=== PATIENT | female | born 1960 | race Caucasian/White ===

== ENCOUNTER 2022-09-15 20:24 | Emergency (ER) | payer OTHER ==
[2022-09-15 21:51] VITALS: BP 187/98; PULSE 89; TEMP 97.4
[2022-09-15] MEDS ORDERED: ONDANSETRON 4 MG/2 ML VIAL IM STA (22:03)
--- NOTE | 2022-09-15 22:03 | ED ---
General Adult HPI - General Chief complaint: Chest Pain Stated complaint: left side injury/pain vomiting blood Time Seen by Provider: 09/15/22 21:55 Source: patient, RN notes reviewed Mode of arrival: ambulatory Limitations: no limitations - History of Present Illness Initial comments: Patient is a 62-year-old female presenting to the emergency room with complaints of chest wall pain/rib pain/left breast pain which began after a shelf from a shelving unit fell on her 2 days ago. She is intolerant to analgesics and has only been taking approximately half Tylenol for pain and declines the need for analgesic therapy at this time however she is concerned that something is wrong with her chest as the pain has persisted. The pain is reproducible and her chest wall is tender. She has some nausea at times without any vomiting as well. She denies any typical chest pain, shortness of breath not directly related to pain, abdominal pain, diarrhea, fevers or chills. She denies any significant past medical history and does not take any medications on a regular basis. - Related Data Allergies Allergy/AdvReac Type Severity Reaction Status Date / Time No Known Allergies Allergy Verified 09/15/22 21:51 Review of Systems ROS Statement: Those systems with pertinent positive or pertinent negative responses have been documented in the HPI. ROS Other: All systems not noted in ROS Statement are negative. Past Medical History Past Medical History: No Reported History Additional Past Medical History / Comment(s): unknown History of Any Multi-Drug Resistant Organisms: None Reported Additional Past Surgical History / Comment(s): unknown Smoking Status: Current every day smoker Past Alcohol Use History: None Reported Past Drug Use History: Marijuana General Exam - General Exam Comments Initial Comments: GENERAL: No acute distress, well developed, well nourished. HEENT: Normocephalic, atraumatic. Pupils equal, round, reactive to light. Moist mucous membranes. LUNGS: No respiratory distress. Clear to auscultation, no adventitious sounds, no use of accessory muscles. HEART: Regular rate and rhythm without murmur, rub, or gallop. ABDOMEN: Normal bowel sounds. Soft, non-tender, non-distended. CHEST/BACK: Normal inspection. Left chest wall upper flank tenderness wrapping around flank to lower left breast. EXTREMITIES: No edema. No tenderness. Moves all extremities. NEUROLOGIC: Alert & oriented x 3. CN II-XII grossly intact. PSYCHIATRIC: Normal affect and behavior. DERMATOLOGIC: Skin intact, without rashes or lesions noted. Limitations: no limitations Course Vital Signs 09/15/22 09/15/22 21:45 22:38 Temperature 97.4 F L Pulse Rate 89 Respiratory 14 18 Rate Blood Pressure 187/98 O2 Sat by Pulse 98 Oximetry Medical Decision Making - Medical Decision Making Was pt. sent in by a medical professional or institution (, PA, [employer]TA[employer] REPRESENTATIVE, urgent care, hospital, or detention...) When possible be specific @ -No Did you speak to anyone other than the patient for history (EMS, parent, family, police, friend...)? What history was obtained from this source @ -No Did you review nursing and triage notes (agree or disagree)? Why? @ -I reviewed and agree with nursing and triage notes yes except patient not of vomiting blood. Occasional nausea with bile vomit. Non-since arriving in the emergency room. Were old charts reviewed (outside hosp., previous admission, EMS record, old EKG, old radiological studies, urgent care reports/EKG's, detention records)? Report findings @ -No old charts were reviewed Differential Diagnosis (chest pain, altered mental status, abdominal pain women, abdominal pain men, vaginal bleeding, weakness, fever, dyspnea, syncope, headache, dizziness, GI bleed, back pain, seizure, CVA, palpatations, mental health)? @ -Differential Chest Wall Pain with nausea: Strain, rib fracture, costochondritis, pneumothorax, contusion, gastroenteritis, GERD, pain induced nausea, vomiting, this is not meant to be an all-inclusive list. EKG interpreted by me (3pts min.). @ -None done X-rays interpreted by me (1pt min.). @ -X-ray bilateral ribs demonstrates no rib fracture, lungs are clear, no effusion or pneumothorax. X-ray KUB demonstrates no evidence of obstruction, normal fecal and gas patterns. No mass or fluid collection noted. CT interpreted by me (1pt min.). @ -None done U/S interpreted by me (1pt. min.). @ -None done What testing was considered but not performed or refused? (CT, X-rays, U/S, labs)? Why? @ -Analgesics and antiemetics offered and declined. What meds were considered but not given or refused? Why? @ -None Did you discuss the management of the patient with other professionals (professionals i.e. , PA, [employer] REPRESENTATIVE, lab, RT, psych nurse, home health care social worker, bottle house cleaners supervisor, teacher, product safety officer, director case)? Give summary @ -No Was smoking cessation discussed for >3mins.? @ -No Was critical care preformed (if so, how long)? @ -No Were there social determinants of health that impacted care today? How? (Homelessness, low income, unemployed, alcoholism, drug addiction, transportation, low edu. Level, literacy, decrease access to med. care, long-term, rehab)? @ -No Was there de-escalation of care discussed even if they declined (Discuss DNR or withdrawal of care, Hospice)? DNR status @ -No What co-morbidities impacted this encounter? (DM, HTN, Smoking, COPD, CAD, Cancer, CVA, ARF, Chemo, Hep., AIDS, mental health diagnosis, sleep apnea, morbid obesity)? @ -None Was patient admitted / discharged? Hospital course, mention meds given and route, prescriptions, significant lab abnormalities, going to OR and other pertinent info. @ -62-year-old female presented to the emergency room with left flank breast and rib pain ongoing for approximately 2 days after a shelf fell out of the shelving unit onto her. She also reports some intermittent nausea and vomiting. She took Tylenol for pain with some relief but was concerned due to continued symptoms after 2 days of possible "internal bleeding or fracture." Hemodynamically stable. No indication for IV fluids. Antiemetics and analgesics offered and declined. Chest wall tenderness from the left posterior flank to lef t breast noted. Abdomen normal. No indication for laboratory studies. Will obtain x-ray of her ribs and a KUB of the abdomen. Both KUB and rib x-ray without abnormalities. No indication for further workup. Encouraged use of [id number] analgesics for pain such as Tylenol. Encouraged use of lidocaine patches if needed for chest wall pain. Encouraged follow-up with primary care provider. Will will discharge home in stable condition with conservative symptomatic management and follow-up with her primary care provider. Undiagnosed new problem with uncertain prognosis? @ -No Drug Therapy requiring intensive monitoring for toxicity (Heparin, Nitro, Insulin, Cardizem)? @ -No Were any procedures done? @ -No Diagnosis/symptom? @ -Chest wall pain Acute, or Chronic, or Acute on Chronic? @ -Acute Uncomplicated (without systemic symptoms) or Complicated (systemic symptoms)? @ -Uncomplicated Side effects of treatment? @ -No Exacerbation, Progression, or Severe Exacerbation? @ -No Poses a threat to life or bodily function? How? (Chest pain, [place], [place], pneumonia, PE, COPD, DKA, ARF, appy, cholecystitis, CVA, Diverticulitis, Homicidal, Suicidal, threat to staff... and all critical care pts) @ -No Diagnosis/symptom? @ -Nausea vomiting Acute, or Chronic, or Acute on Chronic? @ -Acute Uncomplicated (without systemic symptoms) or Complicated (systemic symptoms)? @ -Uncomplicated Side effects of treatment? @ -none Exacerbation, Progression, or Severe Exacerbation] @ -no Poses a threat to life or bodily function? @ -no Case discussed with Dr. Cates. - Radiology Data Radiology results: report reviewed, image reviewed Disposition Clinical Impression: Chest wall pain Disposition: HOME SELF-CARE Condition: Stable Instructions (If sedation given, give patient instructions): Costochondritis (ED) Additional Instructions: Please utilize [id number] pain medication such as Tylenol or ibuprofen for pain as needed. Lidocaine patches [id number] may help with her symptoms as well. Please follow-up with your primary care provider. Please return to the Emergency Department if symptoms worsen or any other concerns. Is patient prescribed a controlled substance at d/c from ED?: No Referrals: Bere Jang MD [STAFF PHYSICIAN] - 1-2 days Time of Disposition: 23:00
--- NOTE | 2022-09-15 22:26 | XR ---
EXAMINATION TYPE: XR ribs bilateral DATE OF EXAM: 09/15/2022 COMPARISON: NONE HISTORY: Chest pain TECHNIQUE: 7 views FINDINGS: Heart is normal. Lungs are clear of infiltrate. No pleural effusion or pneumothorax. No rib fracture seen. IMPRESSION: No active cardiopulmonary disease. Normal ribs.
--- NOTE | 2022-09-15 22:31 | XR ---
EXAMINATION TYPE: XR KUB DATE OF EXAM: 09/15/2022 COMPARISON: NONE HISTORY: Left-sided pain TECHNIQUE: 2 views FINDINGS: There is no sign of intestinal obstruction or pneumoperitoneum. Fecal pattern is normal no evidence of a mass. Lung bases are clear. No pathologic calcifications. IMPRESSION: Nonacute abdomen.
[2022-09-15 22:40] VITALS: RESP 18
== END 2022-09-15 23:21 | disposition home or self-care (01) ==
LOC: SUPCPDRO 20:24 → EC 20:24
DX: R07.89 Other chest pain (principal); F17.200 Nicotine dependence, unspecified, uncomplicated; F12.90 Cannabis use, unspecified, uncomplicated
CPT/HCPCS: 71110; 74018; 99284